=== PATIENT | male | born 1965 ===

== ENCOUNTER → 2022-07-19 10:20 | Outpatient (CLI) | payer BC, SELFPAY ==
--- NOTE | ~2022-07-19 | CT_ITS ---
EXAMINATION: CTA brain DATE: 07/19/2022 11:13 INDICATION: Transient ischemic attack. TECHNIQUE: Computed tomographic angiography (CTA) of the head was performed without and with 100 mL O mnipaque-350 intravenous contrast. Automated exposure control and iterative reconstruction technique were employed. The dose-length product was 1467.99 mGy-cm. Maximum intensity projection 3D reconstru ctions were created. Volume-rendered 3D reconstructions of the intracranial arteries were created by the technologist on a separate workstation. COMPARISON: None. FINDINGS: There is no intracranial hemorrhage, acute infarction, or abnormal intracranial mass lesion . The ventricles are normal in size. There is mucosal thickening in the paranasal sinuses. There are changes of uncinectomies and ethmoidectomies. The mastoid air cells are normal. The orbits are normal . Left vertebral artery is dominant. There is no significant stenosis of basilar artery or the toxicology teacher ior cerebral arteries. There is no significant stenosis of the intracranial internal carotid arteries or anterior or middle cerebral arteries. There is plaque in the proximal internal carotid arteries w ith 0% stenosis relative to normal distal artery lumen diameters. There is no significant stenosis of the anterior or middle cerebral arteries. Anterior communicating artery is normal. The posterior com municating arteries are normal. There is no aneurysm. IMPRESSION: 1. Normal brain. No aneurysm or significant intracranial arterial stenosis. 2. 0% stenosis of the proximal internal carotid arteries relative to normal distal artery lumen diame ters. Reviewed, dictated and finalized at location A. PAINTER HELPER IMPRESSION: 1. Normal brain. No aneurysm or significant intracranial arterial stenosis. 2. 0% stenosis of the proximal internal carotid arteries relative to normal dis pam artery lumen diameters.
[2022-07-19 10:47] LABS: Estimated Glomerular Filt Rate > 60
== END ==
PROVIDERS: PCP Internal Medicine
DX: G45.9 Transient cerebral ischemic attack, unspecified (principal)
CPT/HCPCS: 70496; Q9967